=== PATIENT | male | born 1965 | race Caucasian/White ===

== ENCOUNTER → 2016-07-25 | Outpatient (CLI) | payer BC ==
[~2016-07-25] MED LIST: Z.0.NO CURRENT MEDS
--- NOTE | 2016-07-25 15:23 | RADRPT ---
EXAM DATE/TIME: 07/25/2016 13:53 [place] COMPARISON: No previous studies available for comparison. INDICATIONS : Essential tremors and body stiffness. DOSE: 4.37 mCi Ioflupane Iodine-123 in 2.5 ml total volume MEDICATION(S): 130 mg Potasium Iodine PO one hour prior to injection SPECT IMAGIN hrs IMAGNG: SPECT/CT imaging with fusion was performed. RADIATION DOSE: 30.27 CTDIvol (mGy) MEDICAL HISTORY : None SURGICAL HISTORY : None. ENCOUNTER: [employer] ACUITY: >1 yr PAIN SCALE: 0/10 LOCATION: cranial TECHNIQUE: SPECT imaging of the brain was performed in sagittal, axial and coronal planes. Attenuation correctio n was performed with computed tomography and both the attenuation correction and non-attenuation ventura ected data sets were reviewed. FINDINGS: There is normal biodistribution of radionuclide with symmetric crescent-shaped areas of activity are in the striatum which appears distinct relative to the surrounding brain tissue. CONCLUSION: Normal examination. Steve Kaplan MD on July 25, 2016 at 15:06 Board Certified Radiologist. This report was verified electronically.
== END ==
LOC: HRAD 09:20
PROVIDERS: ATTEND Specialist
DX: G25.0 Essential tremor (principal)
CPT/HCPCS: 78607; A9584